=== PATIENT | female | born 2000 | race Caucasian/White ===

== ENCOUNTER 2020-06-19 15:18 | Emergency (ER) | payer OTHER ==
[~2020-06-19] VITALS: Ht 154.9 cm; Wt 48.1 kg
[2020-06-19 17:53] VITALS: BP 125/84
== END 2020-06-19 18:38 | disposition home or self-care (01) ==
LOC: ER 15:18
DX: S00.01XA Abrasion of scalp, initial encounter (principal); R51 Headache; Z90.89 Acquired absence of other organs; W22.8XXA Striking against or struck by other objects, initial encounter; Y93.89 Activity, other specified; Y99.0 Civilian activity done for income or pay; Y92.69 Other specified industrial and construction area as the place of occurrence of the external cause
CPT/HCPCS: 70450; 72125; 81025

== ENCOUNTER 2022-01-06 21:29 | Emergency (ER) | payer BC, OTHER ==
[~2022-01-06] VITALS: Ht 154.9 cm; Wt 54.4 kg
[2022-01-07 01:28] VITALS: BP 118/74
== END 2022-01-07 01:27 | disposition home or self-care (01) ==
LOC: ER 21:30
DX: S02.2XXA Fracture of nasal bones, initial encounter for closed fracture (principal); Z90.89 Acquired absence of other organs; W51.XXXA Accidental striking against or bumped into by another person, initial encounter; Y93.89 Activity, other specified; Y92.89 Other specified places as the place of occurrence of the external cause; Y99.8 Other external cause status
CPT/HCPCS: 70160